=== PATIENT | male | born 1965 | race Hispanic/Latino ===

== ENCOUNTER 2017-12-24 18:02 | Emergency (ER) | payer SELFPAY ==
[2017-12-24] MEDS ORDERED: IBUPROFEN 600 MG TABLET ONE (18:36)
== END 2017-12-24 19:32 | disposition home or self-care (01) ==
LOC: EDH 18:02
DX: M54.2 Cervicalgia (principal); M54.9 Dorsalgia, unspecified; Z72.0 Tobacco use; W01.0XXA Fall on same level from slipping, tripping and stumbling without subsequent striking against object, initial encounter; Y93.89 Activity, other specified; Y92.89 Other specified places as the place of occurrence of the external cause; Y99.8 Other external cause status
CPT/HCPCS: 72040; 72070

== ENCOUNTER 2018-09-10 05:22 | Emergency (ER) | payer SELFPAY ==
[2018-09-10] MEDS ORDERED: KETOROLAC TROMETHAMINE 60 MG/2 ML VIAL ONE (05:51)
== END 2018-09-10 06:39 | disposition home or self-care (01) ==
LOC: EDH 05:22
DX: S80.02XA Contusion of left knee, initial encounter (principal); F41.9 Anxiety disorder, unspecified; F31.9 Bipolar disorder, unspecified; Z72.0 Tobacco use; W18.39XA Other fall on same level, initial encounter; Y93.01 Activity, walking, marching and hiking; Y92.89 Other specified places as the place of occurrence of the external cause; Y99.8 Other external cause status
CPT/HCPCS: 73562; 96372; 99283; J1885